=== PATIENT | male | born 1955 | race Caucasian/White ===

== ENCOUNTER → 2018-07-20 10:07 | Outpatient (CLI) | payer BC, SELFPAY ==
[2018-07-20 10:22] LABS: RBC Urine None Seen (0-5/HPF)
[2018-07-20 10:52] LABS: Appearance Urine UA CLEAR; Bilirubin Urine UA NEGATIVE (NEGATIVE); Color Urine UA YELLOW; Glucose Urine UA NEGATIVE (Normal); Ketones Urine UA NEGATIVE (NEGATIVE); Leukocyte Esterase Urine UA NEGATIVE (NEGATIVE); Nitrite Urine UA NEGATIVE (Negative); Occult Blood Urine UA NEGATIVE (Negative); Protein Urine UA NEGATIVE (Negative); Urobilinogen Urine UA 0.2 E.U./dL (0.2); pH Urine UA 7.5 (4.5-8.0)
[2018-07-20 11:22] LABS: Amorphous Sediment Urine 1+; Bacteria Urine Many (>30); Culture Indicated Urine Cult Not Indicated; WBC Urine 0-1/HPF (0-5/HPF)
== END ==
PROVIDERS: Family Provider Physician Assistant Medical; PCP Physician Assistant Medical; Visit Provider Urology
DX: R10.9 Unspecified abdominal pain (principal)
CPT/HCPCS: 81001

== ENCOUNTER → 2020-06-11 11:42 | Outpatient (CLI) | payer BC, SELFPAY ==
[2020-06-12 09:45] LABS: COVID19 Sendout Not Detected (Not Detect)
== END ==
PROVIDERS: Family Provider Physician Assistant Medical; PCP Physician Assistant Medical; Visit Provider Nurse Practitioner
DX: Z11.59 Encounter for screening for other viral diseases (principal)
CPT/HCPCS: 87635

== ENCOUNTER 2020-06-14 13:00 | Day surgery (SDC) | payer BC, SELFPAY ==
[2020-06-14] VITALS (7 sets, daily range): BP systolic 104–127; BP diastolic 58–89; PULSE 63–74; RESP 10–16; TEMP 36.1–36.6; O2SAT 94–98; BMI 27.6
--- NOTE | 2020-06-14 | PATH_ITS ---
[facility] Accession Number: [id number] . 01 Material submitted: . PART A: colon - CECAL POLYP PART B: colon - SIGMOID POLYP . 01 Clinical history: . SDC . 02 Diagnosis: A. Cecal Polyp, Biopsy: Colonic mucosa with no diagnostic abnormality, consistent with polypoid redundancy. Negative for serrated lesion, dysplasia and malignancy. . B. Sigmoid Colon Polyp, Biopsy: Tubular adenoma. BFI 06/16/2020 1808 Local . 02 Electronically signed: . Koby Gerber MD, PhD, Pathologist NPI- [id number] . 01 Gross description: . Part A: CECAL POLYP: Received in formalin is 1 fragment(s) of peres, soft tissue measuring 0.7 x 0.3 x 0.1 cm submitted entirely in 1 cassette(s) Part B: SIGMOID POLYP: Received in formalin is 1 fragment(s) of peres, soft tissue measuring 0.4 x 0.3 x 0.3 cm submitted entirely in 1 cassette(s) /QBJ 06/15/2020 1006 Local . 02 Pathologist provided ICD-10: D12.5 . 02 CPT . 754689, [id number] Performed at: 01 [facility] [address] [facility], [place], [place] [id number] MD Hipolito Womack MD Phone: [phone] Performed at: 02 [facility] [address] [place], [place] [id number] MD Caridad Amaya MD Phone: [phone]
--- NOTE | 2020-06-14 11:34 | PM.HP.1 ---
History of Present Illness History of Present Illness Date Patient Seen: 06/14/20 Chief complaint: SDC Narrative: 65-year-old male with a history of colon polyps here for polyp surveillance Meds Home Medications and Allergies Home Medications Medication Instructions Recorded Confirmed Type dutasteride 0.5 mg PO 2XW 06/14/20 06/14/20 History flcpuetu-diq-RC-lycopen-lutein 1 tab PO DAILY 06/14/20 06/14/20 History [Centrum Silver Men] Allergies Allergy/AdvReac Type Severity Reaction Status Date / Time amoxicillin [AMOXICILLIN] Allergy Unknown Verified 06/14/20 13:10 ampicillin [AMPICILLIN] Allergy Unknown Verified 06/14/20 13:10 Penicillins [PENICILLINS] Allergy Unknown Verified 06/14/20 13:10 Exam Narrative Exam Narrative: General: Patient is overweight, not in apparent distress Cardiovascular: Regular rate and rhythm, no murmurs, rubs, or gallops; no evidence of edema; no palpable abdominal aortic aneurysm Gastrointestinal: Normoactive bowel sounds, soft, nontender, nondistended, no rebound tenderness, no hepatosplenomegaly, no evidence of hernia Assessment & Plan Assessment & Plan narrative: 65-year-old male here for colon polyp surveillance Regarding the procedure(s), the risks and potential complications, benefits, and alternatives (including not doing the procedure) were discussed with the patient. The risks include but are not limited to bleeding, splenic injury, infection, perforation which may require surgical intervention, missed lesions, and adverse reactions to sedative medicines. After a question and answer period, the patient agreed to proceed with the procedure(s) and gives informed consent.
[2020-06-14] MEDS: SODIUM CHLORIDE 0.9% 1,000 ML 70 ML IV (13:12)
[2020-06-14] MEDS: fentaNYL 250 MCG/5 ML INJ IV (13:38)
[2020-06-14] MEDS: MIDAZOLAM 5 MG/5 ML VIAL IV (13:38)
--- NOTE | 2020-06-14 14:09 | PM.OP.ENDO ---
Operative Date/Time/Diagnoses Date of procedure: 06/14/20 Procedure Notes Procedure in detail: Surgeon: James Simpson MD Procedure: Colonoscopy with polypectomy Preoperative diagnosis: Colon polyp surveillance Postoperative diagnosis: Colon polyps x2 status post polypectomy, grade 1 internal hemorrhoids Medications: Conscious sedation using 6 mg IV of Midazolam and 200 mcg IV of Fentanyl Preanesthesia Assessment An H and P was performed/updated and the Px?s ASA class is 2. The procedure was discussed in detail with the patient. The potential risks and complications including infection, bleeding, missed lesions, perforation, need for surgery in case of perforation, prolonged hospital stay, and were explained. A brief question and answer period was allotted and once all questions were answered, informed consent was obtained. The patient was brought back to the procedure room and placed on standard monitoring. The patient?s vital signs were monitored continuously throughout the entire procedure. Prior to starting, a timeout was performed to confirm the patient?s identity, allergies, medications, and procedure. Procedure in detail The patient was placed in left lateral decubitus position and once adequate sedation was obtained a GUSTAVO was performed. The digital rectal examination did not reveal any palpable lesions. The tip of the colonoscope was placed in the anal canal and advanced with some difficulty due to reduced mobility in the sigmoid colon. The scope was successfully advanced all the way to the cecum which was identified by the appendiceal orifice and the ileocecal valve. Careful examination of all ramirez of the colon was performed with irrigation of any residual stool. There was note of a fixed area of the sigmoid colon with redundancy and looping. Successful passes of the scope through this area required external pressure and reducing his of the colonoscope. In the cecum, a 2 mm sessile polyp was removed by means of cold Jumbo forceps. Resection and retrieval was complete with minimal bleeding. In the sigmoid colon, a 4 mm sessile polyp was removed by means of cold snare. Resection and retrieval was complete with minimal bleeding. Retroflexion was performed in the rectum which revealed grade 1 internal hemorrhoids The patient tolerated the procedure well and will be brought back to the recovery area to be discharged once criteria are met. The prep was judged to be good and adequate to identify polyps less than 5 mm. The withdrawal time was 14 minutes. The total physician intraservice time was 26 minutes. Complications There were no complications and estimated blood loss was minimal. Recommendations: Resume previous diet Continue outPx medications Follow up pathology results Repeat colonoscopy (with MAC) in 5 or 7 years depending on pathology results An emergency contact number was given to the patient for any complications related to the procedure
== END 2020-06-14 14:55 | disposition home or self-care (01) ==
PROVIDERS: Family Provider Physician Assistant Medical; Referring Provider Internal Medicine Gastroenterology; Visit Provider Internal Medicine Gastroenterology
PROC: 0DJD8ZZ Inspection of Lower Intestinal Tract, Via Natural or Artificial Opening Endoscopic (ICD-10-PCS; CPT 45378; principal; 2020-06-14 14:00)
DX: Z12.11 Encounter for screening for malignant neoplasm of colon (principal); Z86.010 Personal history of colon polyps; K64.0 First degree hemorrhoids; D12.5 Benign neoplasm of sigmoid colon
CPT/HCPCS: 45385; 45380; J2250; J3010

== ENCOUNTER → 2022-01-26 10:09 | Outpatient (CLI) | payer BC, SELFPAY ==
[2022-01-26 11:11] LABS: Prostate Specific Antigen 0.241 ng/mL (0.10-4.00)
== END ==
PROVIDERS: Family Provider Physician Assistant Medical; Referring Provider Urology; Visit Provider Urology
DX: Z12.5 Encounter for screening for malignant neoplasm of prostate (principal)
CPT/HCPCS: 36415; 84153

== ENCOUNTER 2022-06-09 13:59 | Emergency (ER) | payer BC, SELFPAY ==
[2022-06-09] VITALS (8 sets, daily range): BP systolic 127–145; BP diastolic 70–94; PULSE 57–77; RESP 13–22; TEMP 36.1; O2SAT 91–99; BMI 27.7
--- NOTE | 2022-06-09 14:46 | DI.RAD.S_ITS ---
PROCEDURE: XR CHEST 1V INDICATIONS: chest pain TECHNIQUE: One view of the chest was acquired. COMPARISON: None. FINDINGS: Surgical changes and devices: None. Lungs and pleura: Lungs are clear. No pleural effusions or pneumothorax. Mediastinum: The cardiac contours are within normal limits. The aorta demonstrates calcification and tortuosity. Bones and chest wall: No suspicious bony lesions. There is a likely bone island seen involving the right humeral head. Age-appropriate bony degenerative changes are seen. Overlying soft tissues appear unremarkable. IMPRESSION: No significant portable chest abnormality is seen for age. Dictated by: Beltran Gusman M.D. on 06/09/2022 at 14:39 Approved by: Beltran Gusman M.D. on 06/09/2022 at 14:40
[2022-06-09 16:14] LABS: Add Manual Diff / Slide Review NO; Basophils Absolute Auto 100 /uL (0-100); Basophils Percent Auto 1.3 % (0-2); Eosinophils Absolute Auto 400 /uL (0-450); Eosinophils Percent Auto 5.3 % (2-4); Hematocrit 39.4 % (41-53); Hemoglobin 14.2 g/dL (13.5-17.5); Lymphocytes Absolute Auto 1800 /uL (1100-4500); Lymphocytes Percent Auto 24.9 % (25-40); Mean Corpuscular HGB Conc 36.1 % (30-36); Mean Corpuscular Hemoglobin 29.6 PG (26-34); Monocytes Absolute Auto 500 /uL (0-900); Monocytes Percent Auto 7.1 % (3-14); Neutrophils Absolute Auto 4500 /uL (1500-7000); Neutrophils Percent Auto 61.4 % (50-75); Platelet Count 257 X10^3/uL (150-400); White Blood Cell Count 7.3 X10^3/uL (4.5-11.0)
[2022-06-09 16:19] LABS: Alanine Aminotransferase 27 IU/L (<50); Albumin 4.2 g/dL (3.5-5.0); Albumin Globulin Ratio 1.4 (1.0-2.8); Alkaline Phosphatase 76 U/L (38-126); Aspartate Aminotransferase 21 IU/L (17-59); BUN Creatinine Ratio 25.8 (6-22); Bilirubin Total 0.8 mg/dL (0.2-1.3); Blood Urea Nitrogen 23 mg/dL (9-20); Calcium 9.1 mg/dL (8.4-10.2); Carbon Dioxide 24 mmol/L (22-32); Chloride 105 mmol/L (98-107); Creatine Kinase 39 U/L (55-170); Estimated Glomerular Filt Rate > 60 mL/min (>60); Globulin 2.9 g/dL (1.7-4.1); Glucose 83 mg/dL (80-110); HEMOLYSIS < 15 (0-50); Lipase 147 U/L (23-300); Magnesium 1.9 mg/dL (1.6-2.3); Potassium 3.9 mmol/L (3.4-5.1); Sodium 139 mmol/L (137-145); Total Protein 7.1 g/dL (6.3-8.2)
[2022-06-09 16:29] LABS: Troponin I < 0.012 ng/mL (0.01-0.034)
--- NOTE | 2022-06-09 19:07 | ED_ITS ---
HPI - Chest Pain General Chief Complaint: Chest Pain Stated Complaint: high BP, woke up and felt like heart was hurting Time Seen by Provider: 06/09/22 17:57 Source: patient Mode of arrival: Family Vehicle Limitations: no limitations Limitations: no limitations History of Present Illness HPI narrative: Patient is a 67-year-old male who woke up this morning with what he states was a sharp discomfort around his heart. He states that it was consistent until he had a bowel movement later in the day and then it seemed to resolve. He is currently not having any symptoms. He thought maybe it did get worse when he used his left arm to reach for a light switch but does not remember it nece ssarily getting worse with touching the area. No palpitations. No shortness of breath. No nausea vomiting. No change in bowel habits. He did take his blood pressure when he was having the symptoms and he states that it was in the 160s over 100s. He is no diagnosis hypertension. Related Data Home Medications Medication Instructions Recorded Confirmed dutasteride 0.5 mg capsule 0.5 mg PO 2XW 06/14/20 06/14/20 xtsgtxks-erv-yynah acid 300 1 tab PO DAILY 06/14/20 06/14/20 mcg-lycopene 600 mcg-lutein 300 mcg tablet (Centrum Silver Men) Allergies Allergy/AdvReac Type Severity Reaction Status Date / Time amoxicillin [AMOXICILLIN] Allergy Unknown Verified 06/09/22 14:46 ampicillin [AMPICILLIN] Allergy Unknown Verified 06/09/22 14:46 Penicillins [PENICILLINS] Allergy Unknown Verified 06/09/22 14:46 Review of Systems Review of Systems ROS Unobtainable: All systems reviewed & are unremarkable except as noted in HPI and below Patient History Medical History Patient denies medical problems Social History household members: spouse Smoking Status: Never smoker alcohol intake: never Smoking Status: Never smoker alcohol intake frequency: 0-2 drinks per day Substance Use Type: does not use Exam Initial Vital Signs Initial Vital Signs: Vital Signs Temperature 97.0 F L 06/09/22 14:25 Pulse Rate 77 06/09/22 14:25 Respiratory Rate 19 06/09/22 14:25 Blood Pressure 127/94 H 06/09/22 14:25 Pulse Oximetry 97 06/09/22 14:25 Oxygen Delivery Method 06/09/22 14:25 HENMT Head: normal to inspection and normocephalic Chest Chest: normal inspection of the chest Resp Effort & Inspection: normal respiratory effort Auscultation: clear to auscultation bilaterally Cardio Rate: regular rate Rhythm: regular rhythm GI Inspection: normal to inspection Skin General: no rashes or lesions noted Neuro General: patient alert, patient awake, patient oriented x3 and moves all extremities Extrem General: normal to inspection and capillary refill normal Psych Appearance: grossly normal and well kempt Scores HEART Score Heart Score history: Slightly Suspicious Heart Score EKG: Non-Specific repolarization disturbance Heart Score Age: > or = 65 years old Heart Score risk factors: No known risk factors Heart Score troponin: < or = to normal limit Heart Score Total: 3 Course Orders Ordered: ED Orders 06/09/22 14:46 XR chest 1V Stat 06/09/22 14:47 EKG-12 Lead Stat 06/09/22 15:02 Complete Blood Count AUTO DIFF Stat Comprehensive Metabolic Panel Stat Lipase Stat Magnesium Stat Troponin & CK Cardiac Panel Stat 06/09/22 19:10 Troponin I Stat Vital Signs Vital signs: Vital Signs - 8 hr 06/09/22 14:25 Temperature 97.0 F L Pulse Rate 77 Respiratory Rate 19 Blood Pressure 127/94 H Pulse Oximetry 97 Oxygen Delivery Method Room Air MDM - Chest Pain Lab Data Attestation: I reviewed the patient's lab results. Result diagrams: 06/09/22 15:02 06/09/22 15:02 Labs: Lab Results 06/09/22 06/09/22 06/09/22 Range/Units 15:02 15:02 19:10 WBC 7.3 (4.5-11.0) X10^3/uL RBC 4.80 (4.5-5.9) X10^6/uL Hgb 14.2 (13.5-17.5) g/dL Hct 39.4 L (41-53) % MCV 82.0 (80-100) fL MCH 29.6 (26-34) PG MCHC 36.1 H (30-36) % RDW 13.0 (11.6-14.8) % Plt Count 257 (150-400) X10^3/uL Neut % (Auto) 61.4 (50-75) % Lymph % (Auto) 24.9 L (25-40) % Gordon % (Auto) 7.1 (3-14) % Eos % (Auto) 5.3 H (2-4) % Baso % (Auto) 1.3 (0-2) % Neut # (Auto) 4500 (7970-7039) /uL Lymph # (Auto) 1800 (3097-4373) /uL Gordon # (Auto) 500 (0-900) /uL Eos # (Auto) 400 (0-450) /uL Baso # (Auto) 100 (0-100) /uL Sodium 139 (137-145) mmol/L Potassium 3.9 (3.4-5.1) mmol/L Chloride 105 (98-107) mmol/L Carbon Dioxide 24 (22-32) mmol/L BUN 23 H (9-20) mg/dL Creatinine 0.89 (0.66-1.25) mg/dL Estimated GFR > 60 (>60) mL/min BUN/Creatinine Ratio 25.8 H (6-22) Glucose 83 (80-110) mg/dL Calcium 9.1 (8.4-10.2) mg/dL Magnesium 1.9 (1.6-2.3) mg/dL Total Bilirubin 0.8 (0.2-1.3) mg/dL AST 21 (17-59) IU/L ALT 27 (<50) IU/L Alkaline Phosphatase 76 (38-126) U/L Total Creatine Kinase 39 L (55-170) U/L CK-MB (CK-2) TNP CK-MB (CK-2) Rel Index TNP Troponin I < 0.012 < 0.012 (0.01-0.034) ng/mL Total Protein 7.1 (6.3-8.2) g/dL Albumin 4.2 (3.5-5.0) g/dL Globulin 2.9 (1.7-4.1) g/dL Albumin/Globulin Ratio 1.4 (1.0-2.8) Lipase 147 (23-300) U/L Urine Dip Bedside Urine Glucose Negative Bedside Urine Bilirubin - Negative Bedside Urine Ketone - Negative Urine Specific [place] 1.025 Bedside Urine Occult Blood - Negative Bedside Urine pH 6.0 Bedside Urine Protein - Negative Bedside Urine Urobilinogen - Negative Bedside Urine Nitrite - Negative Bedside Urine Leukocytes - Negative Esterase Imaging Data Chest x-ray: Radiologist's Impression: [address] [address] XRay Report Signed Patient: Shimon Ndiaye MR#: [id number] : 1955 Acct:[id number] Age/Sex: 67 / M Date of Service: 06/09/22 Loc: ED Accession Number: [id number] ?? Procedure: XR chest 1V Ordering Provider: Brandi Beckwith MD PROCEDURE:? XR CHEST 1V ? INDICATIONS:? chest pain ? TECHNIQUE:? One view of the chest was acquired.? ? COMPARISON:? None. ? FINDINGS:? ? Surgical changes and devices:? None.? ? Lungs and pleura:? Lungs are clear.? No pleural effusions or pneumothorax.? ? Mediastinum:? The cardiac contours are within normal limits. The aorta demonstrates calcification and tortuosity. ? Bones and chest wall:? No suspicious bony lesions.? There is a likely bone island seen involving the right humeral head.? Age-appropriate bony degenerative changes are seen. ? Overlying soft tissues appear unremarkable.? ? ? IMPRESSION:? No significant portable chest abnormality is seen for age. ? ? Dictated by: Beltran Gusman M.D. on 06/09/2022 at 14:39 ? ? Approved by: Beltran Gusman M.D. on 06/09/2022 at 14:40? ECG Data Attestation: I personally reviewed and interpreted this ECG as follows: Interpretation: Sinus rhythm Sinus arrhythmia Ventricular rate is [address] T wave changes MDM Narrative Medical decision making narrative: Low risk heart score, nonspecific changes on the EKG. Troponins negative x2. Discomfort it seemed to get worse per his report when he moved his left arm and it also improved after he had a bowel movement. I do have low suspicion for ACS however I told him that he should make contact with the primary doctor to discuss this further risk stratification. He was given return precautions. He expressed understanding and agreement. Discharge Plan Departure Patient Disposition: Home Clinical Impression: Atypical chest pain Instructions: DI for Atypical Chest Pain Activity Restrictions/Additional Instructions: I do recommend that you make contact with the primary doctor. I provided you the number for Dr. Kaiser. Return to the emergency department for any new or worsening symptoms. Prescriptions: No Action dutasteride 0.5 mg capsule 0.5 mg PO 2XW Centrum Silver Men 300-600-300 mcg Tablet 1 tab PO DAILY Referrals: Miscellaneous,Doctor, [Primary Care Provider] - Constantine Kaiser DO [Physician] -
[2022-06-09 19:56] LABS: Troponin I < 0.012 ng/mL (0.01-0.034)
== END 2022-06-09 20:35 | disposition home or self-care (01) ==
PROVIDERS: Emergency Medicine; Emergency Provider Emergency Medicine; Family Provider Physician Assistant Medical
DX: R07.89 Other chest pain (principal)
CPT/HCPCS: 36415; 71045; 80053; 81003; 82550; 83690; 83735; 84484; 85025; 93005; 99283; 99284

== ENCOUNTER → 2023-05-10 11:13 | Outpatient (CLI) | payer BC, SELFPAY ==
[2023-05-10 12:47] LABS: Prostate Specific Antigen 0.326 ng/mL (0.10-4.00)
== END ==
PROVIDERS: Family Provider Physician Assistant Medical; Referring Provider Urology; Visit Provider Urology
DX: Z12.5 Encounter for screening for malignant neoplasm of prostate (principal)
CPT/HCPCS: 36415; 84153

== ENCOUNTER → 2024-05-27 11:13 | Outpatient (CLI) | payer BC, SELFPAY ==
[2024-05-27 18:07] LABS: Prostate Specific Antigen 0.207 ng/mL (0.10-4.00)
== END ==
PROVIDERS: Family Provider Physician Assistant Medical; Referring Provider Urology; Visit Provider Urology
DX: R39.9 Unspecified symptoms and signs involving the genitourinary system (principal); Z12.5 Encounter for screening for malignant neoplasm of prostate
CPT/HCPCS: 36415; 84153

== ENCOUNTER → 2025-07-13 13:39 | Outpatient (CLI) | payer BC, SELFPAY ==
[2025-07-13 15:16] LABS: Prostate Specific Antigen 0.253 ng/mL (0.10-4.00)
== END ==
PROVIDERS: Family Provider Physician Assistant Medical; PCP Family Medicine; Referring Provider Urology; Visit Provider Urology
DX: N40.1 Benign prostatic hyperplasia with lower urinary tract symptoms (principal)
CPT/HCPCS: 36415; 84153

== ENCOUNTER → 2025-07-25 12:22 | Outpatient (CLI) | payer BC, SELFPAY | LOC: NUCM 12:23 | PROVIDERS: Family Provider Physician Assistant Medical; PCP Family Medicine; Referring Provider Family Medicine; Visit Provider Internal Medicine | DX: I50.22 Chronic systolic (congestive) heart failure (principal) | CPT/HCPCS: 78452; 93017; A9502; J2785 ==

== ENCOUNTER → 2025-07-26 09:15 | Outpatient (CLI) | payer BC, SELFPAY ==
--- NOTE | 2025-07-26 09:16 | DI.CT.S_ITS ---
PROCEDURE: CT CHEST WO CON
== END ==
LOC: NUCM 09:16
PROVIDERS: Family Provider Physician Assistant Medical; PCP Family Medicine; Referring Provider Internal Medicine; Visit Provider Internal Medicine
DX: I71.21 Aneurysm of the ascending aorta, without rupture (principal); E04.1 Nontoxic single thyroid nodule; M40.204 Unspecified kyphosis, thoracic region; R91.8 Other nonspecific abnormal finding of lung field; I51.7 Cardiomegaly
CPT/HCPCS: 71250